=== PATIENT | female | born 1980 | race Two or more races ===

== ENCOUNTER 2019-12-26 14:30 | Outpatient (CLI) | payer OTHER ==
[2019-12-26] MEDS ORDERED: BACI/NEOM/POLY B OINT PKT 1 UDPKT PACKET ONE (14:52)
== END 2019-12-26 23:59 | disposition home or self-care (01) ==
LOC: WOU 14:30
PROVIDERS: ATTEND Surgery
DX: L03.311 Cellulitis of abdominal wall (principal); L02.211 Cutaneous abscess of abdominal wall; L90.5 Scar conditions and fibrosis of skin
CPT/HCPCS: 11042

== ENCOUNTER 2020-01-06 08:51 | Outpatient (CLI) | payer OTHER | END 2020-01-06 23:59 | disposition home or self-care (01) | LOC: CT 08:51 | PROVIDERS: ATTEND Surgery | DX: S31.109A Unspecified open wound of abdominal wall, unspecified quadrant without penetration into peritoneal cavity, initial encounter (principal); X58.XXXA Exposure to other specified factors, initial encounter; Y93.89 Activity, other specified; Y92.89 Other specified places as the place of occurrence of the external cause; Y99.8 Other external cause status | CPT/HCPCS: 74150-TC ==